=== PATIENT | male | born 1980 | race Two or more races ===

== ENCOUNTER 2017-02-01 14:41 | Emergency (ER) | payer OTHER ==
[~2017-02-01] VITALS: Ht 175.3 cm; Wt 81.1 kg
[~2017-02-01 14:41] MED LIST: GEODON20 MG PO; LITHIUM CARBON300 M2 PO; LITHIUM CARBONATE PO
[2017-02-01] MEDS ORDERED: NAPROSYN500 MG PO (18:15)
[2017-02-01] MEDS ORDERED: SKELAXIN800 MG PO (18:15)
[2017-02-01 18:45] VITALS: BP 138/98
== END 2017-02-01 18:45 | disposition home or self-care (01) ==
LOC: EME 14:41
DX: S46.912A Strain of unspecified muscle, fascia and tendon at shoulder and upper arm level, left arm, initial encounter (principal); S76.012A Strain of muscle, fascia and tendon of left hip, initial encounter; S20.212A Contusion of left front wall of thorax, initial encounter; S06.9X1A Unspecified intracranial injury with loss of consciousness of 30 minutes or less, initial encounter; W18.2XXA Fall in (into) shower or empty bathtub, initial encounter; Y93.E1 Activity, personal bathing and showering; Y92.002 Bathroom of unspecified non-institutional (private) residence as the place of occurrence of the external cause
CPT/HCPCS: 71010; 73030; 73502; 99281; 99284

== ENCOUNTER 2017-05-14 14:19 | Emergency (ER) | payer OTHER ==
[~2017-05-14] VITALS: Ht 175.3 cm; Wt 77.6 kg
[~2017-05-14 14:19] MED LIST changes: +NAPROSYN500 MG PO; +SKELAXIN800 MG PO
[2017-05-14] MEDS ORDERED: IBUPROFEN800 MG PO (20:14)
[2017-05-14 20:24] VITALS: BP 137/84
== END 2017-05-14 20:23 | disposition home or self-care (01) ==
LOC: EME 14:19
PROC: 2W39X1Z Immobilization of Left Upper Extremity using Splint (ICD-10-PCS; principal; 2017-05-14)
DX: S63.502A Unspecified sprain of left wrist, initial encounter (principal); S53.402A Unspecified sprain of left elbow, initial encounter; W19.XXXA Unspecified fall, initial encounter; Y93.67 Activity, basketball; Z88.5 Allergy status to narcotic agent; Z88.0 Allergy status to penicillin
CPT/HCPCS: 73080; 73110; 99281; 99283